=== PATIENT | female | born 1955 | race Caucasian/White ===

== ENCOUNTER → 2023-09-19 16:48 | Outpatient (REF) | payer OTHER, SELFPAY | LOC: HWRAD 16:48 | PROVIDERS: ATTENDING PHYSICIAN Nurse Practitioner; FAMILY PHYSICIAN Internal Medicine | DX: S69.92XA Unspecified injury of left wrist, hand and finger(s), initial encounter (principal) | CPT/HCPCS: 73130 ==

== ENCOUNTER → 2025-06-18 10:37 | Outpatient (REF) | payer OTHER, SELFPAY | LOC: RAD 10:37 | PROVIDERS: FAMILY PHYSICIAN Internal Medicine | DX: M25.532 Pain in left wrist (principal) | CPT/HCPCS: 73110 ==